=== PATIENT | female | born 1980 | race African-American/Black ===

== ENCOUNTER 2019-01-07 16:38 | Emergency (ER) | payer OTHER ==
[~2019-01-07] VITALS: Ht 170.2 cm; Wt 83.0 kg
[2019-01-07 17:38] LABS: BASOPHILS % 0.4 % (0.0-2.0); EOSINOPHILS % 0.4 % (0.0-5.0); HEMATOCRIT. 40.8 % (36.0-48.0); HEMOGLOBIN. 14.3 g/dL (12.0-16.0); MEAN CORPUSCULAR HEMOGLOBIN 29.5 pg (28.0-32.0); MEAN CORPUSCULAR VOLUME 84.2 fL (81.0-99.0); MEAN PLATELET VOLUME 9.1 fl (7.4-10.4); MONOCYTES % 6.5 % (2.0-8.0); NEUTROPHILS % 67.7 % (40.0-76.0); PLATELET 242 x1000/uL (130-400); RED BLOOD CELL COUNT 4.85 mill/uL (4.2-5.4); RED CELL DISTRIBUTION WIDTH 13.4 % (11.6-14.6)
[2019-01-07 17:42] LABS: CHLORIDE 101 mEq/L (98-107)
[2019-01-07] MEDS ORDERED: ACETAMINOPHEN 500MG TABLET PO NR (19:00)
[2019-01-07 19:34] LABS: CLARITY URINE CLOUDY (CLEAR); COLOR URINE YELLOW (YELLOW); KETONES URINE NEGATIVE (NEGATIVE); LEUKOCYTE ESTERASE URINE 2+ (NEGATIVE); NITRITE URINE NEGATIVE (NEGATIVE); OCCULT BLOOD URINE NEGATIVE (NEGATIVE); PH URINE 7.5 (4.5-8.0); PROTEIN URINE NEGATIVE (NEGATIVE); SPECIFIC GRAVITY URINE 1.004 (1.005-1.030); UROBILINOGEN URINE 0.2 E.U./dL (0.2-1.0)
[2019-01-07] MEDS ORDERED: SODIUM CHLORIDE 0.9% 1,000 ML IV ONE (20:42)
[2019-01-07] MEDS ORDERED: CEFTRIAXONE 1 G PREMIX 50 ML IV ONE (20:45)
[2019-01-08 00:18] VITALS: BP 123/75
== END 2019-01-08 00:28 | disposition short-term general hospital (02) ==
LOC: ER 16:38 → CANBEDREQ 21:22 → ER 01-08 00:28
DX: N39.0 Urinary tract infection, site not specified (principal); R53.1 Weakness; R11.0 Nausea; R42 Dizziness and giddiness; M19.90 Unspecified osteoarthritis, unspecified site; L93.2 Other local lupus erythematosus; Z90.49 Acquired absence of other specified parts of digestive tract; Z91.013 Allergy to seafood
CPT/HCPCS: 36415; 71045; 80053; 81003; 83880; 84484; 85025; 87040; 93005; 96365; 96375; 99285; J0696; J7030